=== PATIENT | female | born 2000 | race Caucasian/White ===

== ENCOUNTER 2022-10-31 16:54 | Inpatient (IN) | payer SELFPAY ==
[2022-10-31] MEDS ORDERED: ACETAMINOPHEN 1000 MG/100 ML BAG IVPB ONE (17:16)
[2022-10-31] MEDS ORDERED: ONDANSETRON 4 MG/2 ML VIAL IVPUSH ONE (17:16)
[2022-10-31] MEDS ORDERED: SUCRALFATE 1 GM TABLET (FP) PO ONE (17:17)
[2022-10-31] MEDS ORDERED: SODIUM CHLORIDE 0.9% 500 ML INFUS.BAG IV ONE ×2 (17:18→20:56)
[2022-10-31] MEDS ORDERED: HALOPERIDOL DECANOATE 100 MG/ML IM ONE (17:18)
[2022-10-31] MEDS ORDERED: PANTOPRAZOLE SODIUM 40 MG VIAL IVPUSH ONE (17:20)
[2022-10-31] MEDS ORDERED: ACETAMINOPHEN INJECTION 100 ML IVPB ONE (17:25)
[2022-10-31] MEDS ORDERED: PANTOPRAZOLE SODIUM 40 MG VIAL ONE (17:25)
[2022-10-31] MEDS ORDERED: SUCRALFATE 1 GM TABLET (FP) ONE (17:25)
[2022-10-31] MEDS ORDERED: ONDANSETRON 4 MG/2 ML VIAL ONE (17:25)
[2022-10-31] MEDS ORDERED: HALOPERIDOL LACTATE 5 MG/ML IM ONE (17:25)
[2022-10-31 17:49] LABS: BASO % 0.4 % (0-2.0); EOS % 3.9 % (0-4.5); HEMATOCRIT 39.5 % (32.4-45.2); HEMOGLOBIN 13.4 GM/dL (10.7-15.3); LYMPH % 25.3 % (8-40); MCH 29.3 pg (25.7-33.7); MCHC 33.9 g/dl (32.0-36.0); MEAN CELL VOLUME 86.4 fl (80-96); MEAN PLT VOLUME 8.6 fl (7.5-11.1); MONO % 7.6 % (3.8-10.2); NEUT % 62.8 % (42.8-82.8); PLATELET COUNT 260 10^3/uL (134-434); RBC 4.57 M/mm3 (3.60-5.2); RDW 13.3 % (11.6-15.6); WHITE BLOOD COUNT 9.2 K/mm3 (4.0-10.0)
[2022-10-31 18:23] LABS: CHLORIDE 107 mmol/L (98-107); POTASSIUM 4.1 mmol/L (3.5-5.1); SODIUM 144 mmol/L (136-145)
[2022-10-31 18:26] LABS: ANION GAP 6 MMOL/L (8-16); BLOOD UREA NITROGEN 9.6 mg/dL (7-18); CALCIUM 9.1 mg/dL (8.5-10.1); CO2 31 mmol/L (21-32); GLUCOSE,RANDOM 91 mg/dL (74-106); LIPASE 91 U/L (73-393)
[2022-10-31 18:27] LABS: ALBUMIN 4.1 g/dl (3.4-5.0)
[2022-10-31 18:29] LABS: CREATININE 0.5 mg/dL (0.55-1.3); SGOT/AST 36 U/L (15-37); SGPT/ALT 43 U/L (13-61)
[2022-10-31 18:31] LABS: BILIRUBIN,TOTAL 0.9 mg/dL (0.2-1); TOT PROT 7.4 g/dl (6.4-8.2)
[2022-10-31 18:32] LABS: ALK PHOS 111 U/L (45-117)
[2022-10-31] MEDS ORDERED: AMOX TR/POT CLAV 875MG/125MG TABLETS (FP) PO ONE (18:41)
[2022-10-31] MEDS ORDERED: AMOX TR/POT CLAV 875MG/125MG TABLETS (FP) ONE (19:09)
[2022-10-31] MEDS ORDERED: PIPERACILLIN/TAZOB 4.5 GM 4.5 GM in DEXTROSE 5%-WATER 100 ML IVPB ONE (20:55)
[2022-10-31] MEDS ORDERED: LORazepam 2 MG/ML SDV VIAL IM ONE (21:06)
[2022-10-31] MEDS ORDERED: LORazepam 2 MG/ML SDV VIAL IVPUSH ONE (21:08)
[2022-10-31] MEDS ORDERED: LORazepam 0.5 MG TABLET PO PRN (21:09)
[2022-10-31] MEDS ORDERED: PIPERACILLIN/TAZOB 4.5 GM 4.5 GM/100 ML BAG IVPB ONE (21:19)
[2022-10-31] MEDS ORDERED: ONDANSETRON 4 MG/2 ML VIAL IVPUSH PRN (23:23)
[2022-10-31] MEDS ORDERED: ACETAMINOPHEN 1000 MG/100 ML BAG IVPB PRN (23:25)
[2022-11-01] MEDS: LORazepam 0.5 MG TABLET PO PRN ×4 (01:03→23:54)
[2022-11-01] MEDS: LACTATED RINGERS SOLUTION 1,000 ML/1,000 ML INFUS.BAG IV SCH ×2 (02:20→19:40)
[2022-11-01] MEDS: AMPICILLIN NA/SULBACTAM NA 1.5 GM in SODIUM CHLORIDE 100 ML IVPB SCH ×4 (02:20→21:09)
[2022-11-01] MEDS ORDERED: GABAPENTIN 300 MG CAPSULE PO SCH (06:00)
[2022-11-01] MEDS ORDERED: GABAPENTIN 100 MG CAPSULE PO SCH (06:00)
[2022-11-01] MEDS ORDERED: GABAPENTIN 100 MG CAPSULE PO ONE (06:06)
[2022-11-01] MEDS: PANTOPRAZOLE SODIUM 40 MG VIAL IVPUSH SCH (06:30)
[2022-11-01 07:41] LABS: INR 1.23 (0.83-1.09); PROTHROMBIN TIME (PATIENT) 14.2 SEC (9.7-13.0)
[2022-11-01 07:45] LABS: BASO % 0.3 % (0-2.0); EOS % 3.6 % (0-4.5); HEMATOCRIT 32.4 % (32.4-45.2); HEMOGLOBIN 10.7 GM/dL (10.7-15.3); LYMPH % 27.6 % (8-40); MCH 28.8 pg (25.7-33.7); MCHC 33.2 g/dl (32.0-36.0); MEAN CELL VOLUME 86.8 fl (80-96); MEAN PLT VOLUME 8.6 fl (7.5-11.1); MONO % 7.2 % (3.8-10.2); NEUT % 61.3 % (42.8-82.8); PLATELET COUNT 188 10^3/uL (134-434); RBC 3.73 M/mm3 (3.60-5.2)
[2022-11-01 08:30] LABS: POTASSIUM 4.1 mmol/L (3.5-5.1)
[2022-11-01 08:32] LABS: BLOOD UREA NITROGEN 8.7 mg/dL (7-18)
[2022-11-01 08:34] LABS: CALCIUM 7.8 mg/dL (8.5-10.1); MAGNESIUM 1.7 mg/dL (1.8-2.4)
[2022-11-01 08:35] LABS: CREATININE 0.4 mg/dL (0.55-1.3); PHOSPHOROUS 3.6 mg/dL (2.5-4.9)
[2022-11-01 08:36] LABS: TOT PROT 5.5 g/dl (6.4-8.2)
[2022-11-01 08:37] LABS: BILIRUBIN,TOTAL 0.7 mg/dL (0.2-1)
[2022-11-01 08:39] LABS: ALBUMIN 3.1 g/dl (3.4-5.0)
[2022-11-01] MEDS ORDERED: MAGNESIUM SULF 50% (8.12 MEQ/2 ML-1 GM VIAL) IVPB ONE (08:52)
[2022-11-01] MEDS: levETIRAcetam 500 MG TABLET (FP) PO SCH ×2 (09:27→21:08)
[2022-11-01 10:13] LABS: PH,URINE 7.5 (5.0-8.0); URINE APPEARANCE CLEAR; URINE BILIRUBIN NEGATIVE (NEGATIVE); URINE COLOR YELLOW; URINE GLUCOSE (UA) NEGATIVE (NEGATIVE); URINE KETONE 1+ (NEGATIVE); URINE LEUK ESTERASE NEGATIVE (NEGATIVE); URINE NITRITE NEGATIVE (NEGATIVE); URINE PROTEIN NEGATIVE (NEGATIVE); URINE UROBILINOGEN 0.2 mg/dL (0.2-1.0)
[2022-11-01 10:15] LABS: HCG,QUALITATIVE URINE Negative
[2022-11-01] MEDS: GABAPENTIN 300 MG CAPSULE PO SCH ×2 (15:50→21:08)
[2022-11-02] MEDS: AMPICILLIN NA/SULBACTAM NA 1.5 GM in SODIUM CHLORIDE 100 ML IVPB SCH ×2 (02:19→08:43)
[2022-11-02] MEDS: GABAPENTIN 300 MG CAPSULE PO SCH ×3 (05:44→21:16)
[2022-11-02] MEDS: PANTOPRAZOLE SODIUM 40 MG VIAL IVPUSH SCH ×2 (08:42→10:08)
[2022-11-02] MEDS: levETIRAcetam 500 MG TABLET (FP) PO SCH ×3 (08:43→21:16)
[2022-11-02 09:56] LABS: BASO % 0.3 % (0-2.0); EOS % 5.1 % (0-4.5); HEMOGLOBIN 10.7 GM/dL (10.7-15.3); LYMPH % 33.2 % (8-40); MCH 29.2 pg (25.7-33.7); MCHC 33.5 g/dl (32.0-36.0); MEAN CELL VOLUME 87.1 fl (80-96); MONO % 5.6 % (3.8-10.2); NEUT % 55.8 % (42.8-82.8); PLATELET COUNT 195 10^3/uL (134-434); RBC 3.68 M/mm3 (3.60-5.2); RDW 12.9 % (11.6-15.6); WHITE BLOOD COUNT 6.2 K/mm3 (4.0-10.0)
[2022-11-02 09:59] LABS: INR 1.24 (0.83-1.09); PROTHROMBIN TIME (PATIENT) 14.4 SEC (9.7-13.0)
[2022-11-02 10:17] LABS: POTASSIUM 3.9 mmol/L (3.5-5.1)
[2022-11-02 10:20] LABS: ALBUMIN 3.1 g/dl (3.4-5.0); CALCIUM 8.3 mg/dL (8.5-10.1)
[2022-11-02 10:21] LABS: MAGNESIUM 1.9 mg/dL (1.8-2.4)
[2022-11-02 10:23] LABS: CREATININE 0.3 mg/dL (0.55-1.3); PHOSPHOROUS 3.3 mg/dL (2.5-4.9)
[2022-11-02 10:25] LABS: BILIRUBIN,TOTAL 0.6 mg/dL (0.2-1); TOT PROT 5.7 g/dl (6.4-8.2)
[2022-11-02] MEDS: LORazepam 0.5 MG TABLET PO PRN ×2 (10:38→21:16)
[2022-11-02] MEDS ORDERED: BUPIVACAINE HCL/PF 0.25% (2.5MG/ML) 10 ML VIAL ONE (12:34)
[2022-11-02] MEDS ORDERED: cefOXitin SODIUM 2 GM VIAL (RESTRICTED TO ID) IVPB ONE (12:54)
[2022-11-02] MEDS ORDERED: HEPARIN NA (PORCINE) 5,000 UNITS/ML 1ML VIAL ONE (13:02)
[2022-11-02] MEDS ORDERED: PROPOFOL 20 ML ONE (13:04)
[2022-11-02] MEDS ORDERED: MIDAZOLAM HCL 2 MG/2 ML SINGLE DOSE VIAL ONE (13:05)
[2022-11-02] MEDS ORDERED: HEPARIN NA (PORCINE) 5,000 UNITS/ML 1ML VIAL SQ ONE (13:40)
[2022-11-02] MEDS ORDERED: cefOXitin SODIUM 1 GM VIAL (RESTRICTED TO ID) IVPB ONE ×2 (13:43→13:45)
[2022-11-02] MEDS ORDERED: BUPIVACAINE HCL/PF 0.25% (2.5MG/ML) 10 ML VIAL IJ ONE (13:55)
[2022-11-02] MEDS ORDERED: HYDROmorphone HCl 2 MG/ML VIAL ONE (13:57)
[2022-11-02] MEDS ORDERED: KETOROLAC TROMETHAMINE 30 MG/1 ML VIAL ONE (14:30)
[2022-11-02] MEDS ORDERED: ONDANSETRON 4 MG/2 ML VIAL ONE (14:30)
[2022-11-02] MEDS ORDERED: GLYCOPYRROLATE 0.2 MG/1 ML VIAL ONE (14:33)
[2022-11-02 14:40] VITALS: BMI 18.7
[2022-11-02] MEDS ORDERED: ONDANSETRON 4 MG/2 ML VIAL IVPUSH PRN ×2 (14:50→14:54)
[2022-11-02] MEDS ORDERED: LACTATED RINGERS SOLUTION 1,000 ML IV SCH (15:00)
[2022-11-02] MEDS: morphine SULFATE 4 MG/ML VIAL IVPUSH PRN (19:07)
[2022-11-02] MEDS ORDERED: SIMETHICONE 80 MG TAB.CHEW (FP) PO PRN (19:10)
[2022-11-02] MEDS: HEPARIN NA (PORCINE) 5,000 UNITS/ML 1ML VIAL SQ SCH (21:17)
[2022-11-03 02:23] VITALS: TEMP 98.3
[2022-11-03] MEDS: LORazepam 0.5 MG TABLET PO PRN (02:33)
[2022-11-03] MEDS: morphine SULFATE 4 MG/ML VIAL IVPUSH PRN ×2 (02:34→06:13)
[2022-11-03] MEDS: GABAPENTIN 300 MG CAPSULE PO SCH (05:33)
[2022-11-03] MEDS: HEPARIN NA (PORCINE) 5,000 UNITS/ML 1ML VIAL SQ SCH (05:33)
[2022-11-03] MEDS ORDERED: oxyCODONE HCL 5 MG TABLET PO PRN (08:46)
[2022-11-03 09:30] LABS: BASO % 0.2 % (0-2.0); HEMATOCRIT 31.4 % (32.4-45.2); HEMOGLOBIN 10.7 GM/dL (10.7-15.3); LYMPH % 27.4 % (8-40); MCH 29.1 pg (25.7-33.7); MCHC 34.1 g/dl (32.0-36.0); MEAN CELL VOLUME 85.4 fl (80-96); MEAN PLT VOLUME 8.5 fl (7.5-11.1); MONO % 6.1 % (3.8-10.2); NEUT % 65.3 % (42.8-82.8); PLATELET COUNT 194 10^3/uL (134-434); RBC 3.68 M/mm3 (3.60-5.2); WHITE BLOOD COUNT 8.4 K/mm3 (4.0-10.0)
[2022-11-03] MEDS ORDERED: PANTOPRAZOLE SODIUM 40 MG VIAL IVPUSH SCH (10:00)
[2022-11-03] MEDS ORDERED: ACETAMINOPHEN 500 MG TABLET (FP) PO SCH (10:00)
[2022-11-03] MEDS ORDERED: oxyCODONE HCL 5 MG TABLET PO SCH (10:00)
[2022-11-03] MEDS: levETIRAcetam 500 MG TABLET (FP) PO SCH (10:12)
[2022-11-03 10:18] VITALS: BP 103/52; PULSE 65; RESP 18
[2022-11-03 10:53] LABS: POTASSIUM 4.1 mmol/L (3.5-5.1)
[2022-11-03 11:04] LABS: CALCIUM 8.2 mg/dL (8.5-10.1)
[2022-11-03 11:06] LABS: ALBUMIN 3.2 g/dl (3.4-5.0); BLOOD UREA NITROGEN 6.7 mg/dL (7-18); MAGNESIUM 1.8 mg/dL (1.8-2.4)
[2022-11-03 11:08] LABS: CREATININE 0.3 mg/dL (0.55-1.3); PHOSPHOROUS 3.1 mg/dL (2.5-4.9)
[2022-11-03 11:09] LABS: BILIRUBIN,TOTAL 0.5 mg/dL (0.2-1); TOT PROT 5.4 g/dl (6.4-8.2)
== END 2022-11-03 10:25 | disposition left against medical advice (07) | DRG 263 ==
LOC: JER 16:54 → JERBED 21:53 → J7W 11-01 00:46
PROVIDERS: ADMIT Internal Medicine
PROC: 0FT44ZZ Resection of Gallbladder, Percutaneous Endoscopic Approach (ICD-10-PCS; principal; 2022-11-02 12:45)
DX: K80.00 Calculus of gallbladder with acute cholecystitis without obstruction (principal); G40.909 Epilepsy, unspecified, not intractable, without status epilepticus; F41.0 Panic disorder [episodic paroxysmal anxiety]; R74.01 Elevation of levels of liver transaminase levels; I95.9 Hypotension, unspecified; Z87.11 Personal history of peptic ulcer disease
CPT/HCPCS: 36415; 71045-TC-FY; 74019-TC-FY; 74175-TC; 76705-TC; 80053; 81003; 83605; 83690; 83735; 84100; 84702; 84703; 85025; 85610; 86850; 86900; 86901; 88304-TC; 94760; 99285-25; J1644